=== PATIENT | male | born 1975 | race Caucasian/White ===

== ENCOUNTER 2016-10-13 17:42 | Inpatient (IN) | payer MEDICARE, BC ==
[~2016-10-13] VITALS: Ht 167.6 cm; Wt 139.5 kg
[2016-10-13 17:45] VITALS: Ht 167.6 cm; Wt 139.5 kg
--- NOTE | 2016-10-13 18:23 | ERA ---
ER Documentation Chief Complaint Date/Time DATE: 10/13/16 TIME: 18:20 Chief Complaint POSSIBLE CHICKEN POX SENT BY PCP HPI This is a 40-year-old male who was sent by his primary care doctor, Dr. Boyd for what appears to be chickenpox. The patient has not had chickenpox as a child. Patient states that he developed low-grade temperature 5 days ago with some vesicular rash along the hairline that has worked its way down to the body the past 4-5 days. The lesion started out as vesicles then progressed to macular papular rash and scabs. He has had a slight nonproductive cough, no nausea vomiting diarrhea no photophobia no headache no stiff neck. The patient is a hemodialysis patient he did have dialysis today. Patient has been on testosterone in the past creating polycythemia that seem to remain even though the testosterone was removed ROS All systems reviewed and are negative except as per history of present illness. Medications Home Meds Reported Medications Sorbitol* (Sorbitol*) 30 Ml Soln, 5 ML PO Y for PRN, ML PATIENT SAID TAKEN THIS LAST Wednesday10/13/16 Acetaminophen* (Acetaminophen*) 325 Mg Tablet, 325 MG PO Q6 Y for PRN, #30 TAB 10/13/16 Lanthanum Carbonate* (Fosrenol*) 500 Mg Tab.chew, 500 MG PO TID, TAB.CHEW WITH MEALS 10/13/16 Allergies Allergies: Coded Allergies: No Known Drug Allergy (Verified Allergy, Mild, 10/10/09) latex (Unverified Allergy, Unknown, RASK, 10/13/16) povidone-iodine (Unverified Allergy, Unknown, RASH, 10/13/16) soap (Unverified Allergy, Unknown, RASH, 10/13/16) vancomycin (Unverified Allergy, Unknown, RASH, 10/13/16) PMhx/Soc Hx Miscellaneous Medical Probl: Yes (HD) Hx Alcohol Use: No Hx Substance Use: No Hx Tobacco Use: No Smoking Status: Unknown if ever smoked FmHx Family History: No coronary disease Physical Exam Vitals Vital Signs Date Time Temp Pulse Resp B/P Pulse Ox O2 Delivery O2 Flow Rate FiO2 10/13/16 17:45 98.3 79 22 114/70 98 Physical Exam Const: Well-developed, well-nourished Head: Atraumatic, normocephalic Eyes: Normal Conjunctiva, PERRLA, EOMI, normal sclera, no nystagmus ENT: Normal External Ears, Nose and Mouth, moist mucus membranes. Neck: Full range of motion. No meningismus, no lymphadenopathy. Resp: Clear to auscultation bilaterally, no wheezing, rhonchi, rales Cardio: Regular rate and rhythm, no murmurs, S1 S2 present Abd: Soft, non tender x 4, non distended. Normal bowel sounds, no guarding or rebound, no pulsitile abdominal masses or bruits Skin: Diffuse rash to the scalp neck extremities trunk some are vesicular some maculopapular similar scabs, no signs of abscess] Back: No midline or flank tenderness Ext: No cyanosis, or edema, FROM x 4, normal inspection, neurovascularly intact x 4 Neur: Awake and alert, STR 5/5 x 4, sensation intact x 4, no focal findings, cerebellum intact Psych: Normal Mood and Affect Result Diagram: 10/13/16 1840 10/13/16 1840 Results 24 hrs Laboratory Tests Test 10/13/16 18:40 White Blood Count 4.810^3/ul Red Blood Count 5.3310^6/ul Hemoglobin 14.6g/dl Hematocrit 50.6% Mean Corpuscular Volume 94.9fl Mean Corpuscular Hemoglobin 27.4pg Mean Corpuscular Hemoglobin Concent 28.9g/dl Red Cell Distribution Width 15.9% Platelet Count 54043^3/UL Mean Platelet Volume 11.6fl Neutrophils % 68.0% Lymphocytes % 18.0% Monocytes % 13.0% Eosinophils % 1.0% Neutrophils # 3.310^3/ul Lymphocytes # 0.910^3/ul Monocytes # 0.610^3/ul Eosinophils # 0.010^3/ul Sodium Level 139mmol/L Potassium Level 3.9mmol/L Chloride Level 91mmol/L Carbon Dioxide Level 34mmol/L Anion Gap 18 Blood Urea Nitrogen 30mg/dl Creatinine 10.08mg/dl Glucose Level 108mg/dl Calcium Level 9.0mg/dl Total Bilirubin 0.5mg/dl Direct Bilirubin 0.00mg/dl Indirect Bilirubin 0.5mg/dl Aspartate Amino Transf (AST/SGOT) 39IU/L Alanine Aminotransferase (ALT/SGPT) 31IU/L Alkaline Phosphatase 131IU/L Total Protein 8.2g/dl Albumin 4.2g/dl Globulin 4.00g/dl Albumin/Globulin Ratio 1.05 Current Medications Medications (Trade) Dose Ordered Sig/Todd Route PRN Reason Start Time Stop Time Status Last Admin Dose Admin Acyclovir 500 mg/ Sodium Chloride 100 ml @ 100 mls/hr ONCE ONCE IVPB 10/13/16 18:30 10/13/16 19:29 DC 10/13/16 19:16 Cefepime HCl (Maxipime 1gm/50 ml (Pmx)) 50 ml @ 100 mls/hr ONCE STAT IVPB 10/13/16 19:40 10/13/16 20:09 Procedures/MDM Rash does appear to look like chickenpox. The patient has some immunocompromise state and will admit him for 1 or 2 days for IV acyclovir and observation... PROCEDURE: XR Chest. CLINICAL INDICATION: Chest pain TECHNIQUE: Single portable view of the chest was obtained COMPARISON: None FINDINGS: The heart is enlarged. There is a right lower lobe infiltrate and right lower lobe atelectasis. There is no pleural effusion or pneumothorax. RPTAT: AA IMPRESSION: Mild Cardiomegaly. Right lower lobe infiltrate and right lower lobe atelectasis. .Jayesh Agosto MD, MD Date Time Electronically viewed and signed by .Jayesh Agosto MD, MD on 10/13/2016 18: 57 .S/ CC: SANTIAGO CARDONA DO Departure Diagnosis: Primary Impression: Chickenpox Qualified Code: B01.9 - Varicella without complication Additional Impressions: Hemodialysis patient Pneumonia Qualified Code: J18.1 - Pneumonia of right lower lobe due to infectious organism Condition: Stable SANTIAGO CARDONA DO Oct 13, 2016 18:23
[2016-10-13] MEDS ORDERED: ACYCLOVIR 500 MG in SOD CHLORIDE 0.9% 100 ML IVPB ONE (18:30)
--- NOTE | 2016-10-13 18:34 | HP ---
DATE OF ADMISSION: 10/13/2016 IDENTIFYING DATA: The patient is a 40-year-old male being admitted to the hospital with a headache, low grade fever, shortness of breath, cough and rash. HISTORICAL EVENTS: Importantly, this patient has remained on outpatient hemodialysis for renal ins ufficiency, end-stage, secondary to collapsing focal segmental glomerulosclerosis presented today wi th a cough of 4 to 5 days' duration, having an antecedent earache involving his left ear about 5 day s ago and an increasing rash over the last 3 to 4 days having exposed to herpes zoster (his father h as the same). He has noted increasing shortness of breath and his cough has been nonproductive. He denies any chest pain, nausea, vomiting or abdominal pain. PRESENT MEDICATIONS: 1. Nephro-Socorro 1 per day. 2. Prilosec 40 mg per day. 3. Nasonex 2 sprays in each nostril daily. 4. Fosrenol 500 mg 2 tablets 3 times per day and testosterone intramuscularly. PAST MEDICAL HISTORY: 1. History of transient hypotension. 2. Diabetes. 3. History of Pilonidal cyst. 4. History of chronic renal insufficiency secondary to focal segmental glomerulosclerosis ending in end-stage renal disease requiring dialysis. This was instituted in 05/2010. 5. History of a vitreous hemorrhage related to diabetic retinopathy. 6. History of asymptomatic gallstones and fatty liver. SOCIAL HISTORY: He is a nonsmoker, does not drink. FAMILY HISTORY: Noncontributory. PHYSICAL EXAMINATION: GENERAL: Obese male in no acute distress. VITAL SIGNS: BP 89/79. Respirations were 18, temperature 98.8. EYES: Extraocular muscles were full. NOSE, MOUTH AND THROAT: Normal except for 2 vesicular lesions involving the left upper palate. NECK: Supple without jugular venous distention, thyroid enlargement or adenopathy. LUNGS: Reduced breath sounds without rales, wheezes or rhonchi. HEART: Rhythm was regular, no murmur. No third or fourth sound. ABDOMEN: Nontender. Liver and spleen were not palpable. No masses or tenderness were noted. EXTREMITIES: No edema, no calf tenderness. NEUROLOGIC: No lateralizing motor weakness. SKIN: Revealed a vesicular eruption involving his torso and extremities. IMPRESSION: 1. Chickenpox in an immunocompromised patient, demands observation in the hospital and intravenous acyclovir or equivalent. 2. Chronic renal failure with the need for dialysis. Next dialysis in 2 days' time. PLAN: Admit and IV acyclovir, chest x-ray and infectious disease to see. Dictated By: INDIA TRENT/ORACIO Conf#: [id number] DID#: [id number]
--- NOTE | 2016-10-13 18:57 | RADRPT ---
PROCEDURE: XR Chest. CLINICAL INDICATION: Chest pain TECHNIQUE: Single portable view of the chest was obtained COMPARISON: None FINDINGS: The heart is enlarged. There is a right lower lobe infiltrate and right lower lobe atelectasis. There is no pleural effusion or pneumothorax. RPTAT: AA IMPRESSION: Mild Cardiomegaly. Right lower lobe infiltrate and right lower lobe atelectasis. .Jayesh Agosto MD, MD Date Time Electronically viewed and signed by .Jayesh Agosto MD, on 10/13/2016 18:57 .S/
[2016-10-13 19:05] LABS: ADD SCAN DIFF NO
[2016-10-13 19:11] LABS: ABNORMAL IP MESSAGE 1; HEMATOCRIT 50.6 % (42.0-52.0); HEMOGLOBIN 14.6 g/dl (14.0-18.0); MEAN CORPUSCULAR HEMOGLOBIN 27.4 pg (29.0-33.0); MEAN CORPUSCULAR HGB CONC 28.9 g/dl (32.0-37.0); MEAN CORPUSCULAR VOLUME 94.9 fl (82.0-101.0); MEAN PLATELET VOLUME 11.6 fl (7.4-10.4); PLATELET COUNT 139 10^3/UL (140-415); RED BLOOD COUNT 5.33 10^6/ul (4.70-6.10); RED CELL DISTRIBUTION WIDTH 15.9 % (11.5-14.5); WHITE BLOOD COUNT 4.8 10^3/ul (4.8-10.8)
[2016-10-13] MEDS ORDERED: FOSR500 PO (19:23)
[2016-10-13] MEDS ORDERED: ACET325T45 PO (19:24)
[2016-10-13 19:27] LABS: ALBUMIN 4.2 g/dl (3.3-4.9)
[2016-10-13] MEDS ORDERED: [UNRECOGNIZED DRUG - OTHER] PO (19:27)
[2016-10-13 19:28] LABS: POTASSIUM 3.9 mmol/L (3.5-5.1)
[2016-10-13 19:30] LABS: ALBUMIN/GLOBULIN RATIO 1.05; BILIRUBIN,INDIRECT 0.5 mg/dl (0-1.1); BILIRUBIN,TOTAL 0.5 mg/dl (0.2-1.3); CREATININE 10.08 mg/dl (0.61-1.24); TOTAL PROTEIN 8.2 g/dl (6.1-8.1)
[2016-10-13] MEDS ORDERED: CEFEPIME 1GM/50 ML (PMX) 50 ML IVPB STA (19:40)
[2016-10-13 20:01] LABS: LYMPHOCYTES # 0.9 10^3/ul (0.8-2.9); MONOCYTE # 0.6 10^3/ul (0.3-0.9); NEUTROPHIL # 3.3 10^3/ul (1.6-7.5)
[2016-10-13] MEDS ORDERED: SOD CHLORIDE 0.9% 1,000 ML IV SCH ×2 (20:09→21:38)
[2016-10-13] MEDS ORDERED: ACETAMINOPHEN 325 MG TAB PO PRN ×2 (20:30→22:00)
[2016-10-13] MEDS ORDERED: ONDANSETRON 4 MG INJ IV PRN ×2 (20:30→22:00)
[2016-10-13] MEDS ORDERED: NACL 0.9% 3 ML SYG IV SCH (22:00)
[2016-10-13] MEDS ORDERED: CEFEPIME 1GM/50 ML (PMX) 50 ML IVPB SCH (22:00)
[2016-10-14 06:09] LABS: ADD SCAN DIFF NO
[2016-10-14 06:27] LABS: BASOPHILS % 0.5 % (0.0-2.0); EOSINOPHILS # 0.1 10^3/ul (0.0-0.5); EOSINOPHILS % 1.5 % (0.0-7.0); HEMATOCRIT 44.6 % (42.0-52.0); LYMPHOCYTES # 1.5 10^3/ul (0.8-2.9); LYMPHOCYTES % 37.4 % (15.0-51.0); MEAN CORPUSCULAR HEMOGLOBIN 27.8 pg (29.0-33.0); MEAN CORPUSCULAR HGB CONC 29.1 g/dl (32.0-37.0); MEAN CORPUSCULAR VOLUME 95.5 fl (82.0-101.0); MEAN PLATELET VOLUME 11.9 fl (7.4-10.4); MONOCYTE # 0.7 10^3/ul (0.3-0.9); MONOCYTES % 16.1 % (0.0-11.0); NEUTROPHIL # 1.8 10^3/ul (1.6-7.5); NEUTROPHILS % 43.5 % (39.0-77.0); PLATELET COUNT 116 10^3/UL (140-415); RED BLOOD COUNT 4.67 10^6/ul (4.70-6.10); RED CELL DISTRIBUTION WIDTH 15.8 % (11.5-14.5)
[2016-10-14 06:41] LABS: CREATININE 10.58 mg/dl (0.61-1.24)
[2016-10-14 06:42] LABS: CALCIUM 8.2 mg/dl (8.4-10.2); PHOSPHORUS 3.6 mg/dl (2.5-4.9)
[2016-10-14 07:29] VITALS: BP 102/51; RESP 18
--- NOTE | 2016-10-14 07:45 | PN ---
Date/Time of Note Date/Time of Note DATE: 10/14/16 TIME: 07:42 Assessment/Plan VTE Prophylaxis VTE Prophylaxis Intervention: other Lines/Catheters IV Catheter Type (from Nrsg): Saline Lock Assessment/Plan Assessment/Plan 1. Varicella 2. RLL infiltrate, doubt sec infection, ID to see, follow cxr ordered 3. Low platelet ct, will repeat tomm 4. CKD, ordered HD tomm. Subjective 24 Hr Interval Summary Respiratory: cough (mild and not productive, he is not sob) Cardiovascular: No chest pain Gastrointestinal: no complaints Genitourinary: bleeding Skin: other (no change in rash) Exam/Review of Systems Vital Signs Vitals Vital Signs Date Time Temp Pulse Resp B/P Pulse Ox O2 Delivery O2 Flow Rate FiO2 10/14/16 07:29 99.0 74 18 102/51 97 10/13/16 21:04 Room Air Intake and Output 10/13/16 10/13/16 10/14/16 14:59 22:59 06:59 Intake Total 380 ml Balance 380 ml Exam Neck: No jvd Respiratory: clear to auscultation Cardiovascular: regular rate and rhythm Gastrointestinal: soft Extremities: No edema Skin: other (no change in pap-vessicular rash) Results Result Diagram: 10/14/16 0545 10/14/16 0545 Results 24 hrs Laboratory Tests Test 10/13/16 18:40 10/14/16 05:45 White Blood Count 4.8 4.0 L Red Blood Count 5.33 4.67 L Hemoglobin 14.6 13.0 L Hematocrit 50.6 44.6 Mean Corpuscular Volume 94.9 95.5 Mean Corpuscular Hemoglobin 27.4 L 27.8 L Mean Corpuscular Hemoglobin Concent 28.9 L 29.1 L Red Cell Distribution Width 15.9 H 15.8 H Platelet Count 139 L 116 L Mean Platelet Volume 11.6 H 11.9 H Neutrophils % 68.0 43.5 Lymphocytes % 18.0 37.4 Monocytes % 13.0 H 16.1 H Eosinophils % 1.0 1.5 Neutrophils # 3.3 1.8 Lymphocytes # 0.9 1.5 Monocytes # 0.6 0.7 Eosinophils # 0.0 0.1 Sodium Level 139 135 Potassium Level 3.9 4.0 Chloride Level 91 L 92 L Carbon Dioxide Level 34 H 31 Anion Gap 18 H 16 Blood Urea Nitrogen 30 H 34 H Creatinine 10.08 H 10.58 H Glucose Level 108 88 Calcium Level 9.0 8.2 L Total Bilirubin 0.5 Direct Bilirubin 0.00 Indirect Bilirubin 0.5 Aspartate Amino Transf (AST/SGOT) 39 Alanine Aminotransferase (ALT/SGPT) 31 Alkaline Phosphatase 131 H Total Protein 8.2 H Albumin 4.2 Globulin 4.00 H Albumin/Globulin Ratio 1.05 Basophils % 0.5 Nucleated Red Blood Cells % 0.0 Basophils # 0.0 Nucleated Red Blood Cells # 0.0 Phosphorus Level 3.6 Medications Medications Current Medications Acyclovir 500 mg/ Dextrose 100 ml @ 100 mls/hr Q24H IVPB ; Start 10/14/16 at 20 :00 Sodium Chloride (NS) 1,000 ml @ 20 mls/hr Q24H IV Last administered on 22:16; Admin Dose 20 MLS/HR; Start 10/13/16 at 21:38 Acetaminophen (Tylenol Tab) 650 mg Q6H PRN PO PAIN AND OR ELEVATED TEMP Last administered on 10/13/16 23:14; Admin Dose 650 MG; Start 10/13/16 at 22:00 Ondansetron HCl (Zofran Inj) 4 mg Q6H PRN IV NAUSEA AND/OR VOMITING; Start at 22:00 Multivit/Ca Carb/ B Cmplx/FA/Prenat 1 tab 1 tab DAILY PO ; Start 10/14/16 at 09: 00 Cefepime HCl (Maxipime 1gm/50 ml (Pmx)) 50 ml @ 100 mls/hr Q24H IVPB ; Start at 21:00 INDIA RANDHAWA MD Oct 14, 2016 07:45
--- NOTE | 2016-10-14 08:28 | CONS ---
Date/Time of Note Date/Time of Note DATE: 10/14/16 TIME: 08:18 Assessment/Plan Assessment/Plan Chief Complaint/Hosp Course 1) primary varicella infection with pneumonitis continue with IV acyclovir varicella serology was ordered doubt he has bacterial pneumonia but will cover for CAP with azithromycin po d/c cefepime check procalcitonin if pt is able to start walking around without much difficulty he probable can be change to po valtrex tomorrow and sent home recommend pt be in isolation for one week after rash first appeared 2) DM 3) ESRD Problems: Consultation Date/Type/Reason Admit Date/Time Oct 13, 2016 at 20:09 Date of Consultation: Oct 14, 2016 Type of Consultation: ID Hx of Present Illness 40yo WM with ESRD first began with a SKINNER one week ago. The following day he felt L ear pain but also general achiness. He was started on IV gent with dialysis. 5 Days ago he developed a rash to his face that then progressed to the rest of his body over the next few days. He also developed fevers about 6 days ago and still has them. His SKINNER has since improved. He has a dry cough for about 4-5 days. He was feeling SOB yesterday but less so today. No V, D. He denies CP, abd pain but his rash is somewhat painful and itchy. His father was diagnosed with shingles on 09/25/16 but he had a rash to his face for several days before that. pt does not produce urine. Respiratory: cough (mild and not productive, he is not sob) Cardiovascular: No chest pain Gastrointestinal: no complaints Genitourinary: bleeding Skin: other (no change in rash) Past Medical History ESRD, DM, gallstones Social History Smoking Status: Never smoker Exam/Review of Systems Vital Signs Vitals Vital Signs Date Time Temp Pulse Resp B/P Pulse Ox O2 Delivery O2 Flow Rate FiO2 10/14/16 07:29 99.0 74 18 102/51 97 10/13/16 21:04 Room Air Intake and Output 10/13/16 10/13/16 10/14/16 14:59 22:59 06:59 Intake Total 380 ml Balance 380 ml Exam Constitutional: alert, oriented Head: normocephalic Eyes: nl sclera ENMT: other (several sores/ulcers on upper posterior palate) Neck: supple Respiratory: clear to auscultation Cardiovascular: regular rate and rhythm Gastrointestinal: non-tender, soft Extremities: other (scattered small bumps, dried lesions and dry ulcers over his back, legs, chest, arm, face but no zeferino blisters) Neurological: LICENSED PRACTICAL VOCATIONAL NURSE II-XII intact, nl mental status Results Result Diagram: 10/14/16 0545 10/14/16 0545 Results 24 hrs Laboratory Tests Test 10/13/16 18:40 10/14/16 05:45 White Blood Count 4.8 4.0 L Red Blood Count 5.33 4.67 L Hemoglobin 14.6 13.0 L Hematocrit 50.6 44.6 Mean Corpuscular Volume 94.9 95.5 Mean Corpuscular Hemoglobin 27.4 L 27.8 L Mean Corpuscular Hemoglobin Concent 28.9 L 29.1 L Red Cell Distribution Width 15.9 H 15.8 H Platelet Count 139 L 116 L Mean Platelet Volume 11.6 H 11.9 H Neutrophils % 68.0 43.5 Lymphocytes % 18.0 37.4 Monocytes % 13.0 H 16.1 H Eosinophils % 1.0 1.5 Neutrophils # 3.3 1.8 Lymphocytes # 0.9 1.5 Monocytes # 0.6 0.7 Eosinophils # 0.0 0.1 Sodium Level 139 135 Potassium Level 3.9 4.0 Chloride Level 91 L 92 L Carbon Dioxide Level 34 H 31 Anion Gap 18 H 16 Blood Urea Nitrogen 30 H 34 H Creatinine 10.08 H 10.58 H Glucose Level 108 88 Calcium Level 9.0 8.2 L Total Bilirubin 0.5 Direct Bilirubin 0.00 Indirect Bilirubin 0.5 Aspartate Amino Transf (AST/SGOT) 39 Alanine Aminotransferase (ALT/SGPT) 31 Alkaline Phosphatase 131 H Total Protein 8.2 H Albumin 4.2 Globulin 4.00 H Albumin/Globulin Ratio 1.05 Basophils % 0.5 Nucleated Red Blood Cells % 0.0 Basophils # 0.0 Nucleated Red Blood Cells # 0.0 Phosphorus Level 3.6 Medications Medications Current Medications Acyclovir/Dextrose (Zovirax/D5W) 100 ml @ 100 mls/hr Q24H IVPB ; Start at 20:00 Acetaminophen (Tylenol Tab) 650 mg Q6H PRN PO PAIN AND OR ELEVATED TEMP Last administered on 10/13/16t 23:14; Admin Dose 650 MG; Start 10/13/16 at 22:00 Ondansetron HCl (Zofran Inj) 4 mg Q6H PRN IV NAUSEA AND/OR VOMITING; Start at 22:00 Multivit/Ca Carb/ B Cmplx/FA/Prenat 1 tab 1 tab DAILY PO ; Start 10/14/16 at 09: 00 Cefepime HCl (Maxipime 1gm/50 ml (Pmx)) 50 ml @ 100 mls/hr Q24H IVPB ; Start at 21:00 CHRISTINA CRESPO MD Oct 14, 2016 08:28
[2016-10-14] MEDS ORDERED: AZITHROMYCIN 250 MG TAB PO ONE (08:30)
[2016-10-14] MEDS: MULTIVIT/CA CARB/B CMPLX/FA TAB PO SCH (08:35)
[2016-10-14] MEDS: LANTHANUM 500 MG CHEW PO SCH ×3 (08:35→17:51)
--- NOTE | 2016-10-14 09:05 | RADRPT ---
PROCEDURE: Chest Radiograph. CLINICAL INDICATION: Pneumonia TECHNIQUE: Single frontal chest radiograph. COMPARISON: Chest radiograph 10/13/2016 FINDINGS: The cardiomediastinal silhouette is within normal limits. There is improved aeration of the right l chang base. There is no definitive infiltrate on the current study. The bones are intact. IMPRESSION: 1. Improved aeration of the right lung base. 2. Otherwise unremarkable chest radiograph. RPTAT: KK .Jose Hilario MD, MD Date Time Electronically viewed and signed by .Jose Hilario MD, on 10/14/2016 09:04 .B/
[2016-10-14 09:45] VITALS: BP 101/54; PULSE 77
[2016-10-14 09:46] VITALS: BP 98/55; PULSE 85
[2016-10-14] MEDS ORDERED: ACYCLOVIR 500 MG in DEXTROSE 5% 100 ML IVPB SCH (20:00)
[2016-10-14 20:27] VITALS: BP 111/51; RESP 18
[2016-10-14] MEDS ORDERED: CEFEPIME 1GM/50 ML (PMX) 50 ML IVPB SCH (21:00)
--- NOTE | 2016-10-15 06:51 | CONS ---
Date/Time of Note Date/Time of Note DATE: 10/15/16 TIME: 06:47 Assessment/Plan Assessment/Plan Chief Complaint/Hosp Course 1) primary varicella infection with pneumonitis continue with IV acyclovir varicella serology was ordered doubt he has bacterial pneumonia but will cover for CAP with azithromycin po d/c cefepime check procalcitonin if pt is able to start walking around without much difficulty he probable can be change to po valtrex tomorrow and sent home recommend pt be in isolation for one week after rash first appeared 10/15 - CXR is improved and breathing too no new lesions ok to d/c to home on po valtrex 500mg QD for 7 days (take after dialysis on HD days) and azithromycin 250mg qd for 3 days Rx left with nurse 2) DM 3) ESRD Problems: Consultation Date/Type/Reason Admit Date/Time Oct 13, 2016 at 20:09 Initial Consult Date 10/14/16 Type of Consultation: ID [id number] HR Interval Summary Free Text/Dictation pt states breathing is better no N, V, D no new lesions Exam/Review of Systems Vital Signs Vitals Vital Signs Date Time Temp Pulse Resp B/P Pulse Ox O2 Delivery O2 Flow Rate FiO2 10/14/16 20:27 98.6 69 18 111/51 93 10/13/16 21:04 Room Air Intake and Output 10/14/16 10/14/16 10/15/16 15:00 23:00 07:00 Intake Total 640 ml Balance 640 ml Exam Constitutional: alert, oriented Eyes: nl sclera ENMT: other (less inflammed vesicles/ulcers) Respiratory: clear to auscultation Cardiovascular: regular rate and rhythm Gastrointestinal: non-tender, soft Skin: other (no new vesicles seen, 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) Results Result Diagram: 10/14/16 0545 10/14/16 0545 Medications Medications Current Medications Acyclovir/Dextrose (Zovirax/D5W) 100 ml @ 100 mls/hr Q24H IVPB Last administered on 10/14/16 20:52; Admin Dose 100 MLS/HR; Start 10/14/16 at 20:00 Acetaminophen (Tylenol Tab) 650 mg Q6H PRN PO PAIN AND OR ELEVATED TEMP Last administered on 10/13/16 23:14; Admin Dose 650 MG; Start 10/13/16 at 22:00 Ondansetron HCl (Zofran Inj) 4 mg Q6H PRN IV NAUSEA AND/OR VOMITING; Start at 22:00 Multivit/Ca Carb/ B Cmplx/FA/Prenat (Maritza-Socorro) 1 tab DAILY PO Last administered on 10/14/16t 08:35; Admin Dose 1 TAB; Start 10/14/16 at 09:00 Azithromycin (Zithromax) 250 mg DAILY PO ; Start 10/15/16 at 09:00 CHRISTINA CRESPO MD Oct 15, 2016 06:51
[2016-10-15 07:00] LABS: ADD SCAN DIFF NO
[2016-10-15 07:11] LABS: HEMATOCRIT 43.8 % (42.0-52.0); HEMOGLOBIN 13.1 g/dl (14.0-18.0); MEAN CORPUSCULAR HEMOGLOBIN 27.9 pg (29.0-33.0); MEAN CORPUSCULAR HGB CONC 29.9 g/dl (32.0-37.0); MEAN CORPUSCULAR VOLUME 93.4 fl (82.0-101.0); MEAN PLATELET VOLUME 11.8 fl (7.4-10.4); RED BLOOD COUNT 4.69 10^6/ul (4.70-6.10); RED CELL DISTRIBUTION WIDTH 15.7 % (11.5-14.5); WHITE BLOOD COUNT 4.6 10^3/ul (4.8-10.8)
[2016-10-15 07:21] LABS: PLATELET COUNT 140 10^3/UL (140-415)
[2016-10-15 07:24] LABS: POTASSIUM 3.8 mmol/L (3.5-5.1)
[2016-10-15 07:27] LABS: CREATININE 12.6 mg/dl (0.61-1.24)
[2016-10-15 07:28] LABS: CALCIUM 8.4 mg/dl (8.4-10.2)
[2016-10-15] MEDS: MULTIVIT/CA CARB/B CMPLX/FA TAB PO SCH (08:37)
[2016-10-15] MEDS: LANTHANUM 500 MG CHEW PO SCH (08:38)
[2016-10-15 08:42] VITALS: BP 111/53; RESP 16
[2016-10-15] MEDS ORDERED: AZITHROMYCIN 250 MG TAB PO SCH (09:00)
--- NOTE | 2016-10-15 10:42 | DS ---
DATE OF ADMISSION: 10/13/2016 DATE OF DISCHARGE: 10/15/2016 REASON FOR ADMISSION: Primary varicella k with pneumonitis. HISTORY OF PRESENT ILLNESS: Please see full dictated history and physical per Dr. Nava. Briefly, this is a 40-year-old gentleman with known end-stage renal disease maintained on outpatient hemodialysis due to focal segmental glomerulosclerosis every Wednesday, and Wednesday, who wa s admitted with a history of fevers, headache and increasing maculopapular rash after being recently exposed to zoster in his father and was found to have primary varicella with a possible pneumonitis . HOSPITAL COURSE: The patient was admitted and begun on IV acyclovir. Chest x-ray was obtained and infectious disease consultation with Dr. Crisostomo was also obtained. Dr. Crisostomo agreed that the patient most likely had primary varicella and agreed with the IV acyclovir. He was covered for a community-acquired pneumonia as well with p.o. azithromycin, as initial chest x -ray suggested a possible right lower lobe infiltrate. However, followup chest x-ray the next day showed improved aeration of the right base, he remained w ithout a leukocytosis, had no fever or chills, and continued with normal LFTs. Blood cultures remained negative. He felt markedly improved the next day and therefore will be discharged home on p.o. Valtrex 500 mg daily for 7 days as well as p.o. azithromycin 250 mg daily for 3 days. DISCHARGE DIAGNOSES: 1. Primary varicella infection treated with IV acyclovir and then p.o. Valtrex. 2. Bronchitis, treated with p.o. azithromycin. 3. End-stage renal disease due to focal segmental glomerulosclerosis, maintained on outpatient hemo dialysis every Wednesday, , and Wednesday for many years. 4. Remote history of diabetes mellitus, currently diet controlled. 5. Hypertension, well controlled off medications, on dialysis. 6. Known history of asymptomatic cholelithiasis. DISPOSITION: Home. FOLLOWUP: Will be with Dr. Early at dialysis. DISCHARGE MEDICATIONS: As per the medical reconciliation sheet. His new medications are: 1. Valtrex p.o. 2. Azithromycin p.o. Dictated By: MARSHA EARLY MD, MM/ORACIO Conf#: [id number] DID#: [id number]
[2016-10-16 21:40] LABS: VARICELLA-ZOSTER VIRUS AB IgM 2.19
[2016-10-17 23:27] LABS: VARICELLA-ZOSTER VIRUS AB IgG <135.00 INDEX (<= 0.90)
== END 2016-10-15 10:40 | disposition home or self-care (01) | DRG 865 ==
LOC: E/R 17:42 → MS2 20:09
PROVIDERS: ADMIT Internal Medicine; ATTEND Internal Medicine
DX: B01.9 Varicella without complication (principal); J18.9 Pneumonia, unspecified organism; N18.6 End stage renal disease; E11.22 Type 2 diabetes mellitus with diabetic chronic kidney disease; I12.0 Hypertensive chronic kidney disease with stage 5 chronic kidney disease or end stage renal disease; J40 Bronchitis, not specified as acute or chronic; Z99.2 Dependence on renal dialysis; Z79.84 Long term (current) use of oral hypoglycemic drugs
CPT/HCPCS: 36415; 71010; 80048; 80053; 84100; 84145; 85025; 86787; 87040; 87081; 96374; 96375; J0133; J0692; J7030